=== PATIENT | male | born 1955 | race Caucasian/White ===

== ENCOUNTER → 2018-12-29 10:06 | Outpatient (CLI) | payer OTHER, SELFPAY ==
--- NOTE | 2018-12-29 | DI.RAD.S_ITS ---
PROCEDURE: XR SHOULDER LT MIN 2V INDICATIONS: SHOULDER PAIN,LUMBAR SPINE PAIN TECHNIQUE: 3 views of the shoulder were acquired. COMPARISON: None. FINDINGS: Bones: No fractures or dislocations. No suspicious bony lesions. There is moderate glenohumeral joint degeneration and mild acromioclavicular joint degeneration. Visualized ribs appear intact. Soft tissues: Suspect calcific tendinitis of the rotator cuff. IMPRESSION: Moderate to mild degenerative joint disease and possible rotator cuff calcific tendinitis. Dictated by: Garland Cleveland M.D. on 12/29/2018 at 13:48 Approved by: Garland Cleveland M.D. on 12/29/2018 at 13:50
--- NOTE | 2018-12-29 | DI.RAD.S_ITS ---
PROCEDURE: XR LUMBAR SPINE 2-3V INDICATIONS: SHOULDER PAIN,LUMBAR SPINE PAIN TECHNIQUE: 5 views of the lumbar spine were acquired. COMPARISON: [facility], CR, XR LUMBAR SPINE 2 OR 3VW, 10/06/2016, 16:37. FINDINGS: Bones: 5 [id number]-meqsodt vertebrae are present. There is [id number]-lffdaayn scoliosis. No vertebral body compression fractures. No suspicious bony lesions. Mild degenerative disc disease throughout the lumbar spine, most pronounced at L5 at S1. There is severe facet arthropathy at L5-S1. Soft tissues: Overlying bowel gas pattern is normal. No suspicious soft tissue calcifications. IMPRESSION: 1. Degenerative disc disease and facet arthropathy, most pronounced at L5-S1. 2. Scoliosis Dictated by: Garland Cleveland M.D. on 12/29/2018 at 13:46 Approved by: Garland Cleveland M.D. on 12/29/2018 at 13:48
== END ==
PROVIDERS: PCP Family Medicine Sports Medicine
DX: M54.5 Low back pain (principal); M19.012 Primary osteoarthritis, left shoulder; M25.519 Pain in unspecified shoulder; M47.817 Spondylosis without myelopathy or radiculopathy, lumbosacral region; M51.36 Other intervertebral disc degeneration, lumbar region; M51.37 Other intervertebral disc degeneration, lumbosacral region; M41.9 Scoliosis, unspecified
CPT/HCPCS: 72100; 73030